=== PATIENT | female | born 1955 | race Caucasian/White ===

== ENCOUNTER → 2018-06-20 | Outpatient (CLI) | payer OTHER ==
--- NOTE | 2018-06-22 09:22 | MM ---
Reason for exam: screening (asymptomatic). Last mammogram was performed 8 years and 3 months ago. History: Patient is postmenopausal. Physical Findings: A clinical breast exam by your physician is recommended on an annual basis and results should be correlated with mammographic findings. MG 3D Screening Mammo W/Cad Bilateral CC and MLO view(s) were taken. Prior study comparison: April 03, 2010, bilateral digital screening mammogram. March 18, 2009, bilateral digital screening mammogram. The breast tissue is heterogeneously dense. This may lower the sensitivity of mammography. There are benign appearing round dystrophic calcifications bilaterally. There is no discrete abnormality. ASSESSMENT: Benign, BI-RAD 2 RECOMMENDATION: Routine screening mammogram of both breasts in 1 year.
== END | disposition home or self-care (01) ==
LOC: RADMAMWWP 07:44
PROVIDERS: ATTEND Family Medicine
DX: Z12.31 Encounter for screening mammogram for malignant neoplasm of breast (principal)
CPT/HCPCS: 77063; 77067

== ENCOUNTER 2019-03-29 10:58 | Day surgery (SDC) | payer MEDICARE, OTHER ==
[2019-03-27 15:43] VITALS: BMI 28.2
[~2019-03-29 10:58] MED LIST: LACTATED RINGERS 1,000 ML IV SCH
[2019-03-29] MEDS ORDERED: LIDOCAINE 1% 20 ML VIAL (10MG/ML) FOR IV START INTRADERMA ONE (11:35)
[2019-03-29] MEDS ORDERED: IV FLUID CONTINUATION 1,000 ML IV ONE (11:36)
[2019-03-29] MEDS ORDERED: PROPOFOL 10 MG/ML 20 ML VIAL IV ONE (11:50)
[2019-03-29] MEDS ORDERED: LIDOCAINE 1% INJ 10MG/ML (20 ML MDV) ONE (11:50)
[2019-03-29 11:57] VITALS: RESP 16; TEMP 97.8
--- NOTE | 2019-03-29 12:07 | P.PCN ---
Date of Procedure: 03/29/19 Procedure(s) Performed: BRIEF HISTORY: Patient is a 64-year-old pleasant female scheduled for an elective colonoscopy as a part of screening for colorectal neoplasia. PROCEDURE PERFORMED: Colonoscopy. PREOPERATIVE DIAGNOSIS: Screening for colon cancer. IV sedation per Anesthesia. PROCEDURE: After informed consent was obtained, the patient, was brought into the endoscopy unit. IV sedation was administered by Anesthesia under continuous monitoring. Digital rectal examination was normal. Initially the Olympus CF-160 flexible video colonoscope was then inserted in the rectum, gradually advanced into the cecum without any difficulty. Careful examination was performed as the scope was gradually being withdrawn. Ileocecal valve and the appendiceal orifice were visualized and appeared normal. Prep was excellent. Mucosa of the cecum, ascending colon, transverse colon, descending colon, sigmoid colon, and rectum appeared normal. Retroflexion was performed in the rectum and no lesions were seen. The patient tolerated the procedure well. IMPRESSION: Normal-appearing colon from rectum to cecum with no evidence of colorectal neoplasia. RECOMMENDATIONS: Findings of this examination were discussed with the patient as well as a family. She was advised to have a repeat screening colonoscopy in 10 years..
[2019-03-29 12:30] VITALS: BP 134/82; PULSE 80
== END 2019-03-29 13:00 | disposition home or self-care (01) ==
LOC: ORWHC2ENDO 10:58
PROVIDERS: ATTEND Internal Medicine Gastroenterology
DX: Z12.11 Encounter for screening for malignant neoplasm of colon (principal); I10 Essential (primary) hypertension; E78.5 Hyperlipidemia, unspecified; K21.9 Gastro-esophageal reflux disease without esophagitis; Z90.49 Acquired absence of other specified parts of digestive tract; Z98.51 Tubal ligation status; Z79.899 Other long term (current) drug therapy; Z88.8 Allergy status to other drugs, medicaments and biological substances
CPT/HCPCS: J2001; J2704; G0121

== ENCOUNTER → 2021-09-23 | Outpatient (CLI) | payer MEDICARE, OTHER ==
--- NOTE | 2021-09-23 14:49 | BD ---
EXAMINATION TYPE: Axial Bone Density DATE OF EXAM: 09/23/2021 COMPARISON: NONE CLINICAL HISTORY: 66 years year old Female. ICD-10 CODE: Z780 ASYMPTOMATIC MENOPAUSAL STATE Height: 58.8 Weight: 151 FRAX RISK QUESTIONS: NOTHING TO NOTE HERE RISK FACTORS HISTORY OF: Diet low in dairy products/other sources of calcium: YES Postmenopausal woman: YES, 45 YRS OLD Lost more than 2 inches in height since high school: YES Frequent falls: YES, BALANCE PROBLEMS Hyperparathyroidism: NO Adrenal Insufficiency: NO MEDICATIONS: Additional Medications: BP MEDS, XANAX, TRAZODONE, REFLUX MEDS, STATIN FOR CHOLESTEROL, CALCIUM WITH D3 Additional History: HYPERTENSION, SLEEPLESSNESS, REFLUX, CHOLESTEROL, EXAM MEASUREMENTS: Bone mineral densitometry was performed using the [employer] System. Bone mineral density as measured about the Lumbar spine is: ----- L1-L4(G/cm2): 1.254 T Score Values are as follows: ----- L1: 0.8 ----- L2: -0.8 ----- L3: 0.6 ----- L4: 2.4 ----- L1-L4: 0.6 Bone mineral density FIRST DEXA STUDY AT [facility] Bone mineral density about the R hip (g/cm2): 1.139 Bone mineral density about the L hip (g/cm2): 1.136 T Score values are as follows: -----R Neck: 0.3 -----L Neck: 0.5 -----R Total: 1.0 -----L Total: 1.0 Bone mineral density FIRST BONE DENSITY STUDY AT [facility] FRAX%s: The graph provided illustrates a 6.3% chance for a major osteoporotic fx and a 0.2% chance fo r the hips probability for fx in 10 years time. IMPRESSION: Normal (Values between +1 and -1 indicate normal bone mass). Consider repeating this study in 5 year s or sooner if there is some new clinical indication. NOTE: T-SCORE=SD OF THE YOUNG ADULT MEAN.
--- NOTE | 2021-09-24 08:20 | MM ---
Reason for Exam: Screening (asymptomatic). Last mammogram was performed 3 year(s) and 4 month(s) ago. Patient History: Menarche at age 11. First Full-Term at age 19. Postmenopausal. Risk Values: Janina 5 year model risk: 1.5%. NCI Lifetime model risk: 5.2%. Prior Study Comparison: 03/18/2009 Bilateral Screening Mammogram, [facility]. 04/03/2010 Bilateral Screening Mammogram, [facility]. 06/20/2018 Bilateral Screening Mammogram, [facility]. Tissue Density: The breast tissue is heterogeneously dense. This may lower the sensitivity of mammography. Findings: Analyzed By CAD. There are scattered benign-appearing rounded calcifications throughout the left breast redemonstrated. There is no suspicious group of microcalcifications or new suspicious mass in either breast. Overall Assessment: Benign, BI-RAD 2 Management: Screening Mammogram of both breasts in 1 year. A clinical breast exam by your physician is recommended on an annual basis and results should be correlated with mammographic findings. Electronically signed and approved by: Juan Newby M.D.
== END | disposition home or self-care (01) ==
LOC: RADMAMWWP 08:18 → MERGE 09:20
PROVIDERS: ATTEND Family Medicine
DX: Z12.31 Encounter for screening mammogram for malignant neoplasm of breast (principal); Z78.0 Asymptomatic menopausal state
CPT/HCPCS: 77063; 77067; 77080

== ENCOUNTER → 2022-04-30 | Outpatient (CLI) | payer MEDICARE, OTHER ==
[2022-04-30 22:27] LABS: HCT 41.5 % (37.2-46.3); HGB 13.2 g/dL (12.0-15.0); MCH 29.5 pg (27.0-32.0); MCHC 31.8 g/dL (32.0-37.0); MCV 92.6 fL (80.0-97.0); Mean Platelet Volume 11.4 fL (9.5-12.2); NRBC Per 100 WBC 0 /100 WBCS (0.0-0.0); Platelet Count 205 X 10*3/uL (140-440); RBC 4.48 X 10*6/uL (4.10-5.20); RDW 13.3 % (11.5-14.5); WBC 6.81 X 10*3/uL (4.50-10.00)
[2022-04-30 23:32] LABS: African American GFR (CKD) 51.7 (60.0-200.0); Anion Gap 14.1 mmol/L (10.00-18.00); Carbon Dioxide 24.4 mmol/L (20.0-27.5); Non-African American GFR(CKD) 44.6 (60.0-200.0); Potassium 4.3 mmol/L (3.5-5.5)
[2022-04-30 23:33] LABS: Blood Urea Nitrogen 25.6 mg/dL (9.0-27.0)
== END | disposition home or self-care (01) ==
LOC: LABPAT 16:25
PROVIDERS: ATTEND Internal Medicine Interventional Cardiology
DX: Z01.812 Encounter for preprocedural laboratory examination (principal); I35.1 Nonrheumatic aortic (valve) insufficiency
CPT/HCPCS: 36415; 80051; 82565; 84520; 85027

== ENCOUNTER 2022-05-17 06:24 | Day surgery (SDC) | payer MEDICARE, OTHER ==
[2022-05-12 16:17] VITALS: BMI 29.2
[~2022-05-17 06:24] MED LIST changes: +ALPRAZolam 0.25 MG TAB PO PRN; +ALPRAZolam 0.5 MG TAB PO PRN; +HEPARIN SODIUM,PORCINE 10,000 UNIT in SODIUM CHLORIDE 0.9% 1,000 ML IRRIGATION PRN; +HEPARIN SODIUM,PORCINE 2,500 UNIT in SODIUM CHLORIDE 0.9% 250 ML IRRIGATION PRN; -LACTATED RINGERS 1,000 ML IV SCH; +NITROGLYCERIN SL TABS 0.4 MG TAB SUBLINGUAL PRN; +SODIUM CHLORIDE 0.9% 1,000 ML in EMPTY BAG 1 BAG IV ONE
[2022-05-17] MEDS ORDERED: ASPIRIN 325 MG TAB PO ONE (07:00)
[2022-05-17] MEDS ORDERED: ATORVASTATIN 80 MG TAB PO ONE (07:00)
[2022-05-17] MEDS ORDERED: ASPIRIN 81 MG ONE (07:01)
[2022-05-17] MEDS ORDERED: VERAPAMIL 2.5 MG/ML 2 ML AMP ONE (07:11)
[2022-05-17] MEDS ORDERED: HEPARIN SODIUM 1,000 UN/ML (10ML VL) ONE (07:12)
[2022-05-17] MEDS: fentaNYL (PF) 50 MCG/ML 2 ML AMP IVP ONE ×2 (07:40→07:55)
[2022-05-17] MEDS ORDERED: MIDAZOLAM 2 MG/2 ML VIAL IVP ONE (07:40)
[2022-05-17] MEDS ORDERED: fentaNYL (PF) 50 MCG/ML 2 ML AMP ONE (07:41)
[2022-05-17] MEDS ORDERED: LIDOCAINE 1% INJ 10MG/ML (5 ML VIAL-PF) SQ ONE (07:41)
[2022-05-17] MEDS: HEPARIN SODIUM 1,000 UN/ML (10ML VL) IVP ONE ×3 (07:45→08:24)
[2022-05-17] MEDS ORDERED: HYDROmorphone 1 MG/ML 1 ML SYRINGE ONE (07:59)
[2022-05-17] MEDS ORDERED: HYDROmorphone 1 MG/ML 1 ML SYRINGE IVP ONE (08:00)
[2022-05-17] MEDS ORDERED: NITROGLYCERIN 1000MCG/10ML SYRINGE INTRAARTER ONE (08:16)
[2022-05-17] MEDS ORDERED: TICAGRELOR 90 MG TAB ONE (08:17)
[2022-05-17] MEDS ORDERED: IOPAMIDOL-370 125ML BTL INJ ONE (08:20)
[2022-05-17] MEDS ORDERED: TICAGRELOR 90 MG TAB PO ONE (08:20)
[2022-05-17] MEDS ORDERED: ALPRAZolam 0.25 MG TAB PO PRN (08:21)
[2022-05-17] MEDS ORDERED: ACETAMINOPHEN TAB 500 MG TAB PO PRN (08:21)
[2022-05-17] MEDS ORDERED: ATROPINE SULFATE 0.1 MG/ML 10ML SYRINGE IV PRN (08:22)
[2022-05-17] MEDS ORDERED: NITROGLYCERIN SL TABS 0.4 MG TAB SUBLINGUAL PRN (08:22)
[2022-05-17] MEDS ORDERED: RX INFO: IV CONTRAST WAS GIVEN 1 EACH MISC MISCELLANE PRN (08:22)
[2022-05-17] MEDS ORDERED: MAG HYDROX/AL HYDROX/SIMETH 30 ML CUP PO PRN (08:22)
[2022-05-17] MEDS ORDERED: ZOLPIDEM 5 MG TAB PO PRN (08:22)
[2022-05-17] MEDS ORDERED: SODIUM CHLORIDE 0.9% 1,000 ML in EMPTY BAG 1 BAG IV SCH (08:30)
--- NOTE | 2022-05-17 08:30 | P.PCN ---
Date of Procedure: 05/17/22 Description of Procedure: CARDIAC CATHETERIZATION AND PERCUTANEOUS CORONARY INTERVENTION PERFORMING PHYSICIAN: Josue Soto MD, [facility] PROCEDURE PERFORMED: 1. Selective right and left coronary angiogram 2. Successful stenting of mid LAD using 3.25 x 18 mm Xience RONY with an excellent angiographic results 3. iFR of the left anterior descending artery INDICATION: This is a 67-year-old female patient with hypertension and dyslipidemia and coronary artery disease documented by CT calcium score continues to be symptomatic intermittent chest pain with exertion which is concerning for rosalva na. She underwent myocardial perfusion imaging stress test and that came in to be unremarkable for ischemia but because she continues to be symptomatic I advised the patient to undergo a coronary angiogram. COMPLICATION: None APPROACH: Right radial artery LEVEL OF SEDATION: Moderate with the sedation time off 38 minutes PROCEDURE DESCRIPTION: After obtaining an informed consent the patient was brought to the cardiac operations label clerk. The right radial artery was cannulated using micropuncture technique, the micropuncture wire passed easily then I placed a 6-Japanese sheath at the right radial artery. After that I did selective right and left coronary angiogram using JR4 and JL 3.5 catheter. Left heart catheterization was not performed. Please note that the patient was given 2 mg of verapamil and arterial and 5000 use of heparin and intravenous in the beginning of the procedure. After that I did an iFR and subsequently PCI of the LAD. The procedure was completed was no complication. SELECTIVE CORONARY ANGIOGRAM: The right coronary artery: Medium caliber vessel and on dominant vessel. The RCA has mild disease only. Left main: Is angiographically normal. Bifurcates into an LCx and LAD The left circumflex: Large caliber vessel and a dominant vessel. The proximal LCx has mild disease only. Gives rises into an OM which appeared to be angiographically normal. The left circumflex distally bifurcates into PDA branch which appeared to be angiographically normal and PLV branch which has a critical lesion appeared to be in the range of 90-95%. The left anterior descending artery: The proximal LAD has an intermediate lesion appears to be in the range of 40- 50%. The mid LAD has a lesion appeared to be somewhat worse and he Z and seems to be in the range of 60-70%. iFR was performed and came in to be ischemic at 0.48. iFR OF THE LAD AND PCI OF THE LAD: Anticoagulation was initiated using heparin with continuous ACT monitoring. After zeroing the Doppler wire and equal lysing between the Doppler wire and the guiding catheter which was CLS 3 guiding catheter and after wiring the LAD with did iFR and that came in to be ischemic 0.48. Additional heparin was given. PTCA was performed using 2.5 mm balloon before I deployed 3.25 x 18 mm stent where the stent was positioned under fluoroscopy guidance and deployed under its nominal pressure. The following angiogram showed excellent angiographic results and the procedure was completed was no complication CONCLUSION: #1 critical disease involving the ostial of PLV branch of the right coronary artery #2 intermediate disease involving the mid LAD. iFR=0.48. I did perform successful stenting of the LAD. The LAD proximally still have intermediate lesion appeared to be in the range of 40-50% POSTPROCEDURE MANAGEMENT: #1 dual antiplatelet therapy using aspirin and Brilinta for at least 6 month #2 aggressive cholesterol control #3 follow-up with the patient
[2022-05-17] MEDS ORDERED: ASPIRIN 81 MG PO SCH (09:00)
[2022-05-17] MEDS ORDERED: NON FORMULARY DRUG (Lysine Hcl [L-Lysine] 1,000 MG Tablet) PO SCH (09:00)
[2022-05-17] MEDS ORDERED: NON FORMULARY DRUG (Biotin [Biotin Disolve] 10,000 MCG Tablet) PO SCH (09:00)
[2022-05-17] MEDS ORDERED: traZODone HCL 100 MG TAB PO SCH (21:00)
[2022-05-17] MEDS ORDERED: ATORVASTATIN 40 MG TAB PO SCH (21:00)
[2022-05-17] MEDS ORDERED: PANTOPRAZOLE 40 MG TABLET PO SCH (21:00)
[2022-05-17] MEDS: TICAGRELOR 90 MG TAB PO SCH (21:51)
[2022-05-18 03:54] VITALS: RESP 16; TEMP 97.9
[2022-05-18 07:39] VITALS: BP 127/72; PULSE 71
--- NOTE | 2022-05-18 08:22 | P.DS ---
Providers Attending physician: Josue Soto Consults: 05/17/22 08:22 Consult Physician Routine Consulting Provider: [facility] Consult Reason/Comments: Post Interventional patient Do you want consulting provider notified?: Already Contacted Primary care physician: Tars[facility] Course: The patient is a pleasant 67-year-old female patient was seen in the office assembly for further evaluation of chest discomfort concerning for angina. She underwent a heart catheterization and stenting of the LAD. She was seen this morning. She is asymptomatic and using the direct be stable. The right radial site is soft and nontender with no bruises. The patient is going to be discharged home on dual antiplatelet therapy and high intensity statin and I will follow-up with the patient in the office in a week. Plan - Discharge Summary Discharge Rx Participant: Yes New Discharge Prescriptions: New Ticagrelor [Brilinta] 90 mg PO BID #180 tab Continue Omeprazole [PriLOSEC] 40 mg PO HS Triamterene-Hctz 37.5-25Mg [Dyazide 37.5-25 Capsule] 1 cap PO DAILY traZODone HCL 300 mg PO HS ALPRAZolam [Xanax] 0.25 mg PO Q6H PRN PRN Reason: Anxiety lysine HCL [l-Lysine] 1,000 mg PO DAILY Calcium Carbonate [Calcium] 600 mg PO DAILY Acetaminophen [Tylenol] 500 mg PO Q4-6H PRN PRN Reason: Pain Metamucil (Unknown Dose) 1 dose PO DAILY PRN PRN Reason: Constipation Biotin [Biotin Disolve] 10,000 mcg PO DAILY Aspirin [Vazalore] 81 mg PO DAILY Vitamin E 400 unit PO DAILY Rosuvastatin [Crestor] 20 mg PO HS Venlafaxine HCl [Effexor XR] 300 mg PO DAILY Metoprolol Succinate (ER) [Toprol XL] 25 mg PO DAILY Isosorbide Mononitrate ER [Imdur] 30 mg PO DAILY Discharge Medication List ALPRAZolam [Xanax] 0.25 mg PO Q6H PRN 03/27/19 [History] Acetaminophen [Tylenol] 500 mg PO Q4-6H PRN 03/27/19 [History] Calcium Carbonate [Calcium] 600 mg PO DAILY 03/27/19 [History] Metamucil (Unknown Dose) 1 dose PO DAILY PRN 03/27/19 [History] Omeprazole [PriLOSEC] 40 mg PO HS 03/27/19 [History] Triamterene-Hctz 37.5-25Mg [Dyazide 37.5-25 Capsule] 1 cap PO DAILY 03/27/19 [History] lysine HCL [l-Lysine] 1,000 mg PO DAILY 03/27/19 [History] traZODone HCL 300 mg PO HS 03/27/19 [History] Metoprolol Succinate (ER) [Toprol XL] 25 mg PO DAILY 01/01/22 [History] Rosuvastatin [Crestor] 20 mg PO HS 01/01/22 [History] Venlafaxine HCl [Effexor XR] 300 mg PO DAILY 01/01/22 [History] Aspirin [Vazalore] 81 mg PO DAILY 05/12/22 [History] Biotin [Biotin Disolve] 10,000 mcg PO DAILY 05/12/22 [History] Isosorbide Mononitrate ER [Imdur] 30 mg PO DAILY 05/12/22 [History] Vitamin E 400 unit PO DAILY 05/12/22 [History] Ticagrelor [Brilinta] 90 mg PO BID #180 tab 05/18/22 [Rx] Follow up Appointment(s)/Referral(s): Josue Soto MD [STAFF PHYSICIAN] - 05/27/22 3:45 pm (APPOINTMENT IS ON 05/27/22 AT 3:45PM AT THE [facility] OFFICE) Patient Instructions/Handouts: Moderate Sedation (GEN), Cardiac Rehabilitation (ED), Coronary Intravascular Stent Placement (DC), After Radial Heart Catheterization (GEN) Activity/Diet/Wound Care/Special Instructions: *NO LIFTING, PUSHING, OR PULLING ANYTHING OVER 5 POUNDS FOR 5 DAYS *NO DRIVING FOR 3 DAYS *YOU CAN REMOVE YOUR DRESSING AND SHOWER TOMORROW BUT DO NOT SUBMERSE YOUR PUNCTURE SITE IN WATER FOR A FEW DAYS TO PREVENT INFECTION - SO NO TUB BATHS, POOLS, HOT TUBS, DISHES...ETC *ANY SIGNS OF BLEEDING (HARDNESS, SWELLING, OR EXCESSIVE BRUISING) HOLD DIRECT PRESSURE ON YOUR PUNCTURE SITE AND COME TO THE NEAREST EMERGENCY ROOM TO GET YOUR PUNCTURE SITE LOOKED AT - DO NOT DRIVE YOURSELF! EITHER CALL EMS OR HAVE SOMEONE DRIVE YOU!
[2022-05-18] MEDS: TICAGRELOR 90 MG TAB PO SCH (08:44)
[2022-05-18] MEDS ORDERED: PSYLLIUM HUSK 100% 6 GM PACKET PO PRN (09:00)
[2022-05-18] MEDS ORDERED: CALCIUM CARB-VIT D 500 MG-5 MCG TAB PO SCH (09:00)
[2022-05-18] MEDS ORDERED: TRIAMTERENE-HCTZ 37.5-25MG 1 EACH CAP PO SCH (09:00)
[2022-05-18] MEDS ORDERED: ASPIRIN 81 MG PO SCH (09:00)
[2022-05-18] MEDS ORDERED: VITAMIN E (DL,TOCOPHERYL ACET) 400 UNIT (180 MG) CAP PO SCH (09:00)
[2022-05-18] MEDS ORDERED: ISOSORBIDE MONONITRATE ER 30 MG TAB.ER.24H PO SCH (09:00)
[2022-05-18] MEDS ORDERED: METOPROLOL SUCCINATE (ER) 25 MG TAB.ER.24H PO SCH (09:00)
[2022-05-18] MEDS ORDERED: VENLAFAXINE HCL ER 150 MG CAP PO SCH (09:00)
== END 2022-05-18 09:27 | disposition home or self-care (01) ==
LOC: CATHCVL 06:24 → 6NMEDSUR 08:19 → CATHCVL 05-18 09:27
PROVIDERS: ATTEND Internal Medicine Interventional Cardiology
DX: I25.10 Atherosclerotic heart disease of native coronary artery without angina pectoris (principal); E78.5 Hyperlipidemia, unspecified; I10 Essential (primary) hypertension; Z95.5 Presence of coronary angioplasty implant and graft; Z79.899 Other long term (current) drug therapy
CPT/HCPCS: 93458; C9600; 93454; 93799

== ENCOUNTER → 2024-11-22 | Outpatient (CLI) | payer MEDICARE ==
--- NOTE | 2024-11-22 19:28 | MM ---
Reason for Exam: Screening (asymptomatic). Last mammogram was performed 3 year(s) and 1 month(s) ago. Patient History: Menarche at age 11. First Full-Term at age 19. Postmenopausal. Risk Values: Janina 5 year model risk: 1.5%. NCI Lifetime model risk: 4.5%. Prior Study Comparison: 04/03/2010 Bilateral Screening Mammogram, [facility]. 06/20/2018 Bilateral Screening Mammogram, [facility]. 09/23/2021 Bilateral MG 3D screening mammo w/cad, [facility]. Tissue Density: The breasts are heterogeneously dense, which may obscure small masses. Findings: Analyzed By CAD. Areas of asymmetric density are unchanged. There is no suspicious group of microcalcifications or new suspicious mass in either breast. Overall Assessment: Benign, BI-RAD 2 Management: Screening Mammogram of both breasts in 1 year. . Patient should continue monthly self-breast exams. A clinical breast exam by your physician is recommended on an annual basis. This exam should not preclude additional follow-up of suspicious palpable abnormalities. Note on Janina scores and lifetime risk: 1. A Janina score greater than 3% is considered moderate risk. If this is the case, consider specialist referral to assess eligibility for a risk reducing agent. 2. If overall lifetime risk for the development of breast cancer is 20% or higher, the patient may qualify for future screening with alternating mammogram and breast MRI. [facility], , 11/22/2024 7:25 PM. Electronically signed and approved by: Elias Vences M.D. Radiologist
--- NOTE | 2024-11-22 19:48 | BD ---
EXAMINATION TYPE: Axial Bone Density DATE OF EXAM: 11/22/2024 CLINICAL HISTORY: 69 years old Female. ICD-10 CODE: Z78.0 ASYMPTOMATIC BETZAIDA STATE , Additional Hist ory: Height: 58.5 Weight: 143.0 FRAX RISK QUESTIONS: Alcohol (3 or more units per day): no Family History (Parent hip fracture): no Glucocorticoids (More than 3mos): no (Ex: prednisone, prednisolone, methylprednisolone, dexamethasone, and hydrocortisone). History of Fracture in Adulthood: no Secondary Osteoporosis: 1. Type 1 Diabetes: no 2. Hyperthyroidism: no 3. Menopause before 45: no 4. Malnutrition: no 5. Chronic liver disease: no Rheumatoid Arthritis: no Current Tobacco Use: no RISK FACTORS HISTORY OF: Hip Fracture (Right/Left): no Spine Fracture: no History of Wrist Fracture: no Surgery to Spine/Hip(right/left)/Wrist (right/left): no MEDICATIONS: Thyroid Medications: no Osteoporosis Medications: no EXAM MEASUREMENTS: Bone mineral densitometry was performed using the [employer] System. Bone mineral density as measured about the Lumbar spine is: ----- L1-L4(G/cm2): 1.5817 T Score Values are as follows: ----- L1: 1.7 ----- L2: 0.8 ----- L3: 3.4 ----- L4: 4.6 ----- L1-L4: 2.8 Z Score Values are as follows: ----- L1: 3.4 ----- L2: 2.5 ----- L3: 5.1 ----- L4: 6.3 ----- L1-L4: 4.5 Bone mineral density has: increased 21.0 % since study of: 09/23/2021 Bone mineral density about the R hip (g/cm2): 1.133 Bone mineral density about the L hip (g/cm2): 1.114 T Score values are as follows: -----R Neck: 0.6 -----L Neck: 0.1 -----R Total: 1.0 -----L Total: 0.8 Z Score values are as follows: -----R Neck: 2.3 -----L Neck: 1.8 -----R Total: 2.5 -----L Total: 2.3 Bone mineral density has: decreased -1.2 % since study of: 09/23/2021 FRAX%s: The graph provided illustrates a 6.8% chance for a major osteoporotic fx and a 0.3% chance fo r the hips probability for fx in 10 years time. IMPRESSION: Normal (Values between +1 and -1 indicate normal bone mass). Consider repeating this study in 5 year s or sooner if there is some new clinical indication. NOTE: T-SCORE=SD OF THE YOUNG ADULT MEAN. [facility], , 11/22/2024 7:45 PM
== END | disposition home or self-care (01) ==
LOC: RADMAMWWP 07:18
PROVIDERS: ATTEND Family Medicine
DX: Z12.31 Encounter for screening mammogram for malignant neoplasm of breast (principal); R92.333 Mammographic heterogeneous density, bilateral breasts; Z78.0 Asymptomatic menopausal state
CPT/HCPCS: 77063; 77067; 77080